=== PATIENT | female | born 1950 | race Caucasian/White ===

== ENCOUNTER 2018-08-07 11:58 | Day surgery (SDC) | payer MEDICARE, OTHER, SELFPAY ==
[2018-07-31 11:42] VITALS: BMI 38.1
[2018-08-06 13:30] VITALS: BMI 38.2
[2018-08-07] VITALS (8 sets, daily range): BP systolic 111–135; BP diastolic 58–86; PULSE 51–57; RESP 16; TEMP 36.2–36.5; O2SAT 96–100; BMI 38.2
--- NOTE | 2018-08-07 12:10 | EKG12_ITS ---
Test Reason : PREOP Blood Pressure : / mmHG Vent. Rate : 057 BPM Atrial Rate : 057 BPM P-R Int : 158 ms QRS Dur : 084 ms QT Int : 414 ms P-R-T Axes : 040 -06 025 degrees QTc Int : 402 ms Sinus bradycardia Otherwise normal ECG No previous ECGs available Confirmed by BRAYAN DARLING, ADDY ([id number]), editor news AMILCAR DAVEY ([id number]) on 08/12/2018 9:07:49 AM Referred By: Jairo Chen Confirmed By:ADDY SCHMIDT MD
[2018-08-07] MEDS: Cefazolin 2 GM in 0.9% Normal Saline 100 ML IV (14:44)
[2018-08-07] MEDS: Bupivacaine Mpf 0.5% 30 ML VIAL (14:44)
--- NOTE | 2018-08-07 15:25 | RAD_ITS ---
STUDY: X-RAY CHEST REASON FOR EXAM: Female, 68 years old. Status post port placement. TECHNIQUE: Portable upright chest AP COMPARISON: None. FINDINGS: Right Mediport catheter, internal jugular insertion, tip lying in the proximal SVC, approximately 1.2 cm cephalad of the level of the andrea. The lungs are clear and normal. There is no effusion or pneumothorax. Normal cardiomediastinal silhouette, sheron and pleural margins. No acute osseous or upper abdominal process. RAD/Chest 1 View (Portable) IMPRESSION: Mediport catheter tip in proximal SVC. No acute cardiopulmonary process. Electronically Signed: Thanh Hu MD at 16:40 EST Tel , Service support ,
--- NOTE | 2018-08-07 15:28 | DCINST_ITS ---
Discharge Diet: No Restrictions - Pain medication may cause nausea. You should typically eat light foods as you take your pain medication. Discharge Activity: Return to Normal Activity, May Shower - Leave the bandage on for 2-3 days. When you remove the bandage, leave the steri-strips intact until they fall off. Additional Activity Instructions:: No lifting over [address] may drive in 1-3 days. Please to do not operate machinery if you are utilizing narcotic pain medication. Additional Dressing/Incision Instructions:: Leave the bandage on for 3 days. When you remove the bandage, leave the steri-strips intact for 1 additional week Allergies/Adverse Reactions: Allergies No Known Allergies Allergy (Verified 08/07/18 12:41) Medications to take at Discharge Esomeprazole Magnesium [Nexium 24Hr] 20 mg PO DAILY 07/31/18 Gabapentin [Neurontin] 600 mg PO TIDCM 07/31/18 Hydrochlorothiazide [Hctz] 25 mg PO DAILY 07/31/18 Ibuprofen [Motrin] 600 mg PO Q6H PRN PRN 07/31/18 Levothyroxine [Synthroid] 125 mcg PO DAILY 07/31/18 Metoprolol(XL)Succ [Toprol Xl (Beta Charlie)] 100 mg PO DAILY 07/31/18 Simvastatin [Zocor] 40 mg PO QHS 07/31/18 Lidocaine/Prilocaine [Lidocaine-Prilocaine Cream] 1 applicatio TP DAILY PRN PRN 30 Days #1 tube 08/07/18 Ondansetron [Ondansetron Odt] 8 mg PO Q8H PRN PRN 30 Days #30 tab.rapdis 08/07/18 Primary Care Physician: Mohinder Rod MD [Primary Care Provider] - Test Results: Test results from this visit will be discussed in further detail at your follow- up appointment, if applicable. Please Follow Up With: Jairo Chen MD - [phone] When: Further office appointments can be as you need.
--- NOTE | 2018-08-07 15:31 | OP.PCM_ITS ---
Problem List (1) Vulvar cancer Status: Acute Report of Operation Date of Procedure: 08/07/18 Pre-Operative Diagnosis: Vulvar cancer Post-Operative Diagnosis: Same Surgery/Procedure Performed:: Right internal jugular 6 American power port placement Description of Surgical Findings:: Timeout and informed consent was obtained. 68-year-old female was taken the operative room. She was placed on the table. Ancef 2 g given intravenously preoperatively. The right neck and chest were sterilely prepped and draped. 1% lidocaine mixed 50-50 with 0.5% Marcaine was used as local anesthetic. Pr oximately 12 cc was used. Local was instilled under ultrasound guidance overlying the right internal jugular vein. Micropuncture needle inserted. Micropuncture wire inserted. Fluoroscopy demonstrated good positioning. Local was instilled down upon the right chest wall. Second intercostal space midclavicular line transverse incision was created sharp dissection carried down through the subcutaneous tissue electrocautery was used to make a sub-changes pocket. The tubing was tunneled from the neck to the chest site. A micropuncture sheathover the wire and I exchanged out for an 035 J-wire. Sheath dilator was placed over the wire. The wire and the dilator were removed. The catheter was advanced through the sheath. The sheath was split. Under fluoroscopic control the catheter was positioned at the SVC atrial junction. It was amputated to length and connected to the port and secured with the port attachment device. The port was placed in the pocket and secured there with interrupted 2-0 silk sutures. The port site was closed with interrupted 3-0 Vicryl subdermal stitches. The neck was closed with interrupted 5-0 Vicryl subdermal stitches. Steri-Strips applied. The port was accessed and aspirated readily and it was flushed with saline and then 2 cc of heparinized saline. Telfa OpSite dressings applied. Sponge and instrument and needle counts were reported to the surgeon to be correct. Blood loss was minimal. Specimens none. Drains none. Blood loss minimal. She was taken to the recovery area in satisfactory condition without apparent complication. Stat portable chest x-ray is pending. Jairo Chen M.D., F.A.C.S. Type of Anesthesia:: Local MAC Anesthesiologist: Manish Espinoza
== END 2018-08-07 16:49 | disposition home or self-care (01) ==
LOC: SDC 11:59 → AC 12:00
PROVIDERS: Family Provider Family Medicine; PCP Family Medicine; Referring Provider Surgery; Visit Provider Surgery
PROC: (CPT 36561; principal; 2018-08-07 13:45)
DX: C51.9 Malignant neoplasm of vulva, unspecified (principal); R59.0 Localized enlarged lymph nodes; I10 Essential (primary) hypertension; M19.90 Unspecified osteoarthritis, unspecified site; E78.00 Pure hypercholesterolemia, unspecified; G47.30 Sleep apnea, unspecified; K21.9 Gastro-esophageal reflux disease without esophagitis; Z78.0 Asymptomatic menopausal state; Z79.899 Other long term (current) drug therapy
CPT/HCPCS: 00532; 36561; 76937; 71045; 76642; 77001; 93005; J7120

== ENCOUNTER → 2018-08-15 08:03 | Outpatient (CLI) | payer MEDICARE, OTHER, SELFPAY ==
[2018-07-31 11:42] VITALS: BMI 38.1
[2018-08-07 12:37] VITALS: BMI 38.2
[2018-08-15] VITALS (10 sets, daily range): BP systolic 118–149; BP diastolic 39–73; PULSE 48–57; RESP 14–20; TEMP 37.2; O2SAT 92–100; BMI 37.8
--- NOTE | 2018-08-15 | ASPIGT_PTH ---
PATIENT: JONY DOSHI LOC: CT U#:[id number] AGE/SX: 75/F ROOM: RE08/15/[address]: Dr. Osman Key MD : [id number] BED: DIS: SPEC #: [id number] RECD: 08/15/18 12:12 STATUS: CHANTE SAMPSONBhargavi #: [id number] LESLIE: 08/15/18 00:[address]: Osman Key DEPT: SURGICAL PATHOLOGY RECD BY: Bereket Mckee ENTERED: 08/15/18 12:33 SP TYPE: ASP RAD OTHR DR: Dr. Mohinder Rod MD Tissues: Axilla, NOS Procedures: FNA Specimen Adequacy Special Stain Group II Surgery Specimen Level IV Imprint (control) HEADER OPERATION: CT-guided left axillary biopsy PRE-OP DIAGNOSIS: Mass TISSUE SUBMITTED: Left axilla MICROSCOPIC DIAGNOSIS Left axillary lymph node, CT-guided core biopsy: Fragments of skeletal muscle tissue and adipose tissue, negative for malignancy. Lymph node tissue is not identified. TAMMI:johana 08/18/18 COMMENT The specimen is evaluated at the time of biopsy by Dr. Stevens. Immediate Evaluation: Set #1 - two passes - Skeletal muscle and adipose tissue, negative for malignant cells. Set #2 - one pass - Skeletal muscle tissue, negative for malignant cells. Multiple levels are examined. This case is discussed with Dr. Harley on 08/18/18. Case has been reviewed in consultation with Dr. Parks who concurs with the above diagnosis. IDC:AM MICROSCOPIC DESCRIPTION Slides are reviewed. GROSS DESCRIPTION Received in fixative is one container labeled with the patient's name and designated CT-guided left axillary lymph node biopsy. The specimen consists of multiple irregular fragments of watson soft tissue that in aggregate measure 0.5 x 0.1 x <0.1 cm. The specimen is totally submitted in one cassette. Three touch imprints are prepared at the time of core biopsy. / TAMMI:johana 08/15/18 TC: Cannot code CPT: 02458, 97907, 96264
--- NOTE | 2018-08-15 08:10 | CT_ITS ---
PROCEDURE: CT GUIDED biopsy of the left axillary node. DATE: August 15, 2018. INDICATION: Female, 68 years old. Left axillary lymph node. History of vulvar carcinoma. PHYSICIAN: Chester Laguna M.D. RADIATION DOSAGE (If Supplied By Facility): CTDIvol = ( 16.8 ) mGy, DLP = ( 517.45 ) mGycm. Individualized dose optimization techniques were utilized. PROCEDURE: The risks, benefits, and alternatives to the procedure were explained to the patient. The specific risk of hemorrhage requiring further treatment or intervention was detailed and accepted. Follow-up instructions were discussed with the patient as well. Written informed consent was obtained. The patient was brought into the CT suite and placed in the supine position. . An appropriate entry site was identified. The overlying skin was prepped and draped in the usual sterile fashion. 1% lidocaine was administered subcutaneously for local anesthesia. Conscious sedation was performed. The patient received 2 mg of Versed and 50 mcg of fentanyl intravenously. The patient was independently monitored by the department nurse. Conscious sedation was started 9:39 AM and terminated at 9:[address] guidance, a total of 6 passes were performed utilizing a 19-gauge core biopsy needle The specimens were then placed in the appropriate fluid and transported to the laboratory for analysis. Hemostasis was obtained. The patient tolerated the procedure well without immediate complications. CT/Biopsy/Inj or Needle Placement IMPRESSION: Successful CT guided biopsy of the left axillary lymph node, as described above. Electronically Signed: Chester Laguna MD at 10:49 EST , Service support ,
[2018-08-15 08:50] LABS: Prothrombin Time (Protime)PT. 12.7 SECONDS (11.7-14.9)
[2018-08-15 08:52] LABS: Partial Thromboplast Time 34.5 Seconds (24.1-36.2)
[2018-08-15] MEDS: fentaNYL 100 MCG/2 ML Ampul IV (09:39)
[2018-08-15] MEDS: Midazolam 2 MG/2 ML Syringe IV (09:39)
== END ==
PROVIDERS: Family Provider Family Medicine; PCP Family Medicine; Referring Provider Internal Medicine Medical Oncology; Visit Provider Internal Medicine Medical Oncology
DX: Z01.818 Encounter for other preprocedural examination (principal); R59.0 Localized enlarged lymph nodes; C51.9 Malignant neoplasm of vulva, unspecified
CPT/HCPCS: 38505; 77012; 85610; 85730; 88172; 88305; 88313; 99156; 99157; J7040; A4216

== ENCOUNTER → 2018-09-11 11:30 | Outpatient (CLI) | payer MEDICARE, OTHER, SELFPAY ==
[2018-07-31 11:42] VITALS: BMI 38.1
[2018-09-03 09:30] VITALS: BMI 38.8
[2018-09-10 08:42] VITALS: BMI 38.0
--- NOTE | 2018-09-11 11:33 | MRI_ITS ---
STUDY: BILATERAL BREAST MR WITHOUT AND WITH CONTRAST REASON FOR EXAM: Female, 68 years old. Left breast lesion on CT. Status post biopsy of the left maxillary lymph node. TECHNIQUE: Multi-sequence multi-echo imaging of both breasts was performed with a dedicated breast coil. T1-weighted and T2-weighted images were performed before the administration of contrast. T1-weighted images were also performed after the administration of Gadavist 10ml IV without complications. COMPARISON: Screening mammogram dated May 28, 2018, unilateral left diagnostic mammogram dated August 05, 2018 and unilateral left breast ultrasound dated August 07, 2018. FINDINGS: RIGHT BREAST: The breast tissue is fatty with no background enhancement. There are no abnormal enhancing masses or areas of non-mass enhancement in the right breast. LEFT BREAST: The breast tissue is fatty with no background enhancement. There are no abnormal enhancing masses or areas of non-mass enhancement in the left breast. There are no enlarged or abnormal lymph nodes. There is no abnormality in the visualized regions of the chest or liver. MRI/Breast Bilateral W/O and W IMPRESSION: No abnormality present on the breast MRI examination with contrast. CATEGORY: BIRADS Category 1: Negative. A letter regarding these results will be sent to the patient by the facility within 30 days. Electronically Signed: Kevyn Savage MD at 15:45 EST , Service support ,
== END ==
PROVIDERS: Family Provider Family Medicine; PCP Family Medicine; Referring Provider Student in an Organized Health Care Education/Training Program; Visit Provider Student in an Organized Health Care Education/Training Program
DX: R92.8 Other abnormal and inconclusive findings on diagnostic imaging of breast (principal); C51.9 Malignant neoplasm of vulva, unspecified
CPT/HCPCS: 77049; 77386; A9585; A4216; C8908

== ENCOUNTER 2019-01-07 15:43 | Outpatient (RCR) | payer MEDICARE, OTHER, SELFPAY ==
[2018-07-31 11:42] VITALS: BMI 38.1
[2018-09-18 11:04] VITALS: BMI 36.9
--- NOTE | 2019-01-12 09:54 | HP.OTEVAL_ITS ---
Patient's Visit Information JONY DOSHI is a 68 year old F, referred to Occupational Therapy by Jomar Harley DO, with a diagnosis of lymphedmea. Date of Evaluation: 01/07/19 Occupational Therapist: KELSEA Wade/Sarahi, CHT - Subjective Subjective: this 68 year old female was seen for OT eval with dx of lymphedema. Pt states she had right vulva status post biopsy (06/09/2018), partial radical vulvectomy of the right with bilateral sentinel lymph node biopsy and bilateral groin dissection (06/20/2018), CT chest abdomen pelvis (07/04/2018), and PET scan (07/23/2018). From 08/20/18 - 10/01/18 she received adjuvant radiation therapy to the bilateral groin and pelvis. pt states she had. drain tubes for 2 weeks following sx,. chemo 3 x radiation 5x week for 5 weeks. sx on right but left side is swelling at ankle level-. swelling of left ankle the last 6 weeks- pt states its almost normal in am, states she has bought compression socks (mmHg 8-10) but continues to have some swelling- pt would like to know how she can mtg the swelling. - Pain left LE 1 - Lymphedema (Circumferential Measure) Mid-foot: right 21cm left 21.5 Ankle: right 23.5 left 25cm Lower calf: right 22cm left 24cm Largest calf: right 42 left 41cm Below knee: right 37 left 36cm Lower Exremity Comments: pt demo with min. swelling in left LE - Lower Limb Functional Index Lower Extremity Functional Score: 47 - Goals Demonstrate a 20% reduction in edema by d/c: Yes Demonstrate adequate knowledge of self-massage by 2nd week: Yes Demonstrate adequate knowledge skin care/prec by 2nd week: Yes Demonstrate adequate knowledge therapeutic exercises by d/c: Yes Select approp compression garment w/donning/care/wear by d/c: Yes Voice need to replace compression garment every 4-6mo by dc: Yes - Rehabilitation General Assessment: pt demo with left LE stage I lymphedema. pt demo with swelli ng of left LE pt has compression sock on 14-20mmHg. pt feels compression sock is helpful but would like to know what more she can do. Pt states she is limited with ambulation when her leg swells- pt would benefit from skilled OT services 2-3 visits to ensure ed. on lymphaedema mtg. Today pt was ed on lymphedema tx options,skin care and precautions, lymphedema ex and use of compressions socks. pt demo understanding and agrees to POC. Rehabilitation Potential: Good - Anticipated Interventions Anticipated Interventions: Education re Diagnosis, Manual Lymph Drainage, Education re Life-long lymphedema Management, Education re Skin Care and Precautions, Education re Self Massage Techniques, Education re Correct Donning Tech,Care&Wearing Sched Comp Garments - Visit Plan TEXT: Thank you for the opportunity to evaluate your patient. For Medicare and Medicare HMO plans, please review the plan of care and approve it. It will need to be FAXED BACK to us at [phone] for Medicare purposes. Please let me know if there are questions or concerns regarding this plan of care. Physician Signature: Date:
== END 2019-01-07 19:00 | disposition home or self-care (01) ==
LOC: OT 15:43
PROVIDERS: Family Provider Family Medicine; PCP Family Medicine; Referring Provider Student in an Organized Health Care Education/Training Program; Visit Provider Student in an Organized Health Care Education/Training Program
DX: C51.9 Malignant neoplasm of vulva, unspecified (principal)
CPT/HCPCS: 97166; 97530